=== PATIENT | male | born 1955 | race Caucasian/White ===

== ENCOUNTER 2017-07-15 17:04 | Emergency (ER) | payer MEDICARE ==
[~2017-07-15] VITALS: Ht 188 cm; Wt 69.0 kg
[2017-07-15 17:05] VITALS: BP 125/72; PULSE 86; RESP 16; TEMP 98.3; O2SAT 98
--- NOTE | 2017-07-15 18:08 | RADRPT ---
EXAM DATE/TIME: 07/15/2017 17:35 [place] COMPARISON: No previous studies available for comparison. INDICATIONS : Cough. MEDICAL HISTORY : None. SURGICAL HISTORY : None. ENCOUNTER: Initial ACUITY: 1 day PAIN SCORE: 0/10 LOCATION: Bilateral chest FINDINGS: Minimal airspace disease in the left lower lobe. Cardiomediastinal contours are within normal limits. Mild compression deformity of likely L2 vertebral body. CONCLUSION: 1. Left lower lobe airspace disease concerning for developing pneumonia. 2. Compression deformity of L2 vertebral body of unknown chronicity given lack of prior exams. Enrique Ma MD on July 15, 2017 at 18:05 Board Certified Radiologist. This report was verified electronically.
[2017-07-15 19:40] LABS: AUTOMATED NEUTROPHIL # 4.7 TH/MM3 (1.8-7.7); BASOPHIL # 0.1 TH/MM3 (0-0.2); BASOPHIL % 0.8 % (0.0-2.0); EOSINOPHIL # 0.2 TH/MM3 (0-0.4); EOSINOPHIL % 2.7 % (0.0-4.0); HEMATOCRIT 34.9 % (39.0-51.0); HEMOGLOBIN 11.8 GM/DL (13.0-17.0); LYMPH % 19.1 % (9.0-44.0); LYMPHOCYTE # 1.4 TH/MM3 (1.0-4.8); MEAN CELL VOLUME 89.9 FL (80.0-100.0); MEAN CORPUSCULAR HEMOGLOBIN 30.3 PG (27.0-34.0); MEAN CORPUSCULAR HGB CONC 33.7 % (32.0-36.0); MEAN PLATELET VOLUME 8.5 FL (7.0-11.0); MONO % 12.7 % (0.0-8.0); MONOCYTE # 0.9 TH/MM3 (0-0.9); NEUT % 64.7 % (16.0-70.0); PLATELET COUNT 275 TH/MM3 (150-450); RED BLOOD COUNT 3.88 MIL/MM3 (4.50-5.90); RED CELL DISTRIBUTION WIDTH 13.6 % (11.6-17.2); WHITE BLOOD COUNT 7.3 TH/MM3 (4.0-11.0)
--- NOTE | 2017-07-15 19:51 | PD ---
HPI Chief Complaint: Respiratory Symptoms Time Seen by Provider: 19:38 Travel History International Travel<30 days: No Contact w/Intl Traveler<30days: No Traveled to known affect area: No History of Present Illness HPI patient has a history of 4 days of coughing as noted by home health staff. per staff at bedside, patient has not been noted to have had fever/n/v/d/cp/abdpain/ backpain complaint while at long term. patient is pleasantly confused and has no active complaints all:denies pmhx: dementia, htn, hyperchol, hypothyroid Allergies-Medications (Allergen,Severity, Reaction): Coded Allergies: No Known Allergies (Unverified , 07/15/17) Reported Meds & Prescriptions Reported Meds & Active Scripts Active Reported Aspirin 81 Mg Chew 81 Mg CHEW DAILY Aricept (Donepezil HCl) 5 Mg Tablet Unknown Dose Celexa (Citalopram Hydrobromide) 10 Mg Tab Unknown Dose PO DAILY Lisinopril 2.5 Mg Tab Unknown Dose PO DAILY Simvastatin 5 Mg Tab Unknown Dose PO DAILY Levothyroxine (Levothyroxine Sodium) 25 Mcg Tab Unknown Dose PO DAILY Review of Systems Except as stated in HPI: all other systems reviewed are Neg General / Constitutional: No: Fever Eyes: No: Visual changes HENT: No: Headaches Cardiovascular: No: Chest Pain or Discomfort Respiratory: Positive: Cough Gastrointestinal: No: Abdominal Pain Genitourinary: No: Dysuria Musculoskeletal: No: Pain Skin: No Rash Neurologic: No: Weakness Psychiatric: No: Depression Endocrine: No: Polydipsia Hematologic/Lymphatic: No: Easy Bruising Physical Exam Narrative GENERAL: SKIN: Warm and dry. HEAD: Atraumatic. Normocephalic. EYES: Pupils equal and round. No scleral icterus. No injection or drainage. ENT: No nasal bleeding or discharge. Mucous membranes pink and moist. NECK: Trachea midline. No JVD. CARDIOVASCULAR: Regular rate and rhythm. RESPIRATORY: No accessory muscle use. LLL crackles noted but with excellent tidal volume. Breath sounds equal bilaterally. GASTROINTESTINAL: Abdomen soft, non-tender, nondistended. MUSCULOSKELETAL: Extremities without clubbing, cyanosis, or edema. No obvious deformities. NEUROLOGICAL: Awake and alert. No obvious cranial nerve deficits. Motor grossly within normal limits. Five out of 5 muscle strength in the arms and legs. Normal speech. PSYCHIATRIC: Appropriate mood and affect; insight and judgment normal. Data Data Last Documented VS Vital Signs Date Time Temp Pulse Resp B/P (MAP) Pulse Ox O2 Delivery O2 Flow Rate FiO2 07/15/17 20:02 82 18 97 07/15/17 17:05 98.3 125/72 (89) Room Air Orders Orders Chest, Pa & Lat (07/15/17 ) Influenzae A/B Antigen (07/15/17 17:23) Complete Blood Count With Diff (07/15/17 18:26) Basic Metabolic Panel (Bmp) (07/15/17 18:26) Levofloxacin (Levaquin) (07/15/17 20:00) Labs Laboratory Tests Test 07/15/17 18:50 White Blood Count 7.3 TH/MM3 Red Blood Count 3.88 MIL/MM3 Hemoglobin 11.8 GM/DL Hematocrit 34.9 % Mean Corpuscular Volume 89.9 FL Mean Corpuscular Hemoglobin 30.3 PG Mean Corpuscular Hemoglobin Concent 33.7 % Red Cell Distribution Width 13.6 % Platelet Count 275 TH/MM3 Mean Platelet Volume 8.5 FL Neutrophils (%) (Auto) 64.7 % Lymphocytes (%) (Auto) 19.1 % Monocytes (%) (Auto) 12.7 % Eosinophils (%) (Auto) 2.7 % Basophils (%) (Auto) 0.8 % Neutrophils # (Auto) 4.7 TH/MM3 Lymphocytes # (Auto) 1.4 TH/MM3 Monocytes # (Auto) 0.9 TH/MM3 Eosinophils # (Auto) 0.2 TH/MM3 Basophils # (Auto) 0.1 TH/MM3 CBC Comment DIFF FINAL Differential Comment Blood Urea Nitrogen 23 MG/DL Creatinine 1.51 MG/DL Random Glucose 86 MG/DL Calcium Level 9.1 MG/DL Sodium Level 139 MEQ/L Potassium Level 4.6 MEQ/L Chloride Level 103 MEQ/L Carbon Dioxide Level 31.6 MEQ/L Anion Gap 4 MEQ/L Estimat Glomerular Filtration Rate 47 ML/MIN [facility] Medical Decision Making Medical Screen Exam Complete: Yes Emergency Medical Condition: Yes Medical Record Reviewed: Yes Interpretation(s) pulse ox with excellent pleth wave, has 98% on ra which is within normal limits , also no tachypnea noted either Differential Diagnosis pna v ptx v pleural effusion v pulm edema Narrative Course PATIENT IS CLINICALLY STABLE. NO HYPOXEMIA, NO LEUKOCYTOSIS/ANEMIA ON CBC, NORMAL ELECTROLYTES. Diagnosis Primary Impression: LLL pneumonia Qualified Codes: J18.1 - Lobar pneumonia, unspecified organism Patient Instructions: Community Acquired Pneumonia (DC), General Instructions Scripts Levofloxacin (Levofloxacin) 750 Mg Tablet 750 MG PO DAILY for Infection for 5 Days, #7 TAB 0 Refills Prov: Amador Moncada MD 07/15/17 Disposition: 01 DISCHARGE HOME Condition: Stable Amador Moncada MD Jul 15, 2017 19:50
[2017-07-15] MEDS ORDERED: LEVOFLOXACIN 750 MG TAB PO ONE (20:00)
[2017-07-15] MEDS ORDERED: CELE10TA PO (20:08)
[2017-07-15] MEDS ORDERED: ARIC5TAB6 (20:08)
[2017-07-15] MEDS ORDERED: LEVO25TA4 PO (20:08)
[2017-07-15] MEDS ORDERED: ASPI-516 CHEW (20:08)
[2017-07-15] MEDS ORDERED: SIMV5TAB3 PO (20:08)
[2017-07-15] MEDS ORDERED: LISI2.5T3 PO (20:08)
[2017-07-15 20:17] LABS: BICARBONATE 31.6 MEQ/L (21.0-32.0); CALCIUM 9.1 MG/DL (8.5-10.1); CREATININE 1.51 MG/DL (0.60-1.30)
[2017-07-15] MEDS ORDERED: LEVO750T3 PO (21:08)
== END 2017-07-15 21:30 | disposition home or self-care (01) ==
LOC: NEPD 17:04
DX: J18.1 Lobar pneumonia, unspecified organism (principal); E03.9 Hypothyroidism, unspecified; F03.90 Unspecified dementia, unspecified severity, without behavioral disturbance, psychotic disturbance, mood disturbance, and anxiety; I10 Essential (primary) hypertension
CPT/HCPCS: 71046; 80048; 85025; 87804; 99284